=== PATIENT | male | born 1950 | race Caucasian/White ===

== ENCOUNTER 2017-02-10 11:32 | Outpatient (CLI) | payer MEDICARE, BC ==
[2017-02-10] MEDS ORDERED: Iopamidol 300 61% 30 ML VIAL ONE (12:55)
[2017-02-10] MEDS ORDERED: Lidocaine 1% PF 5 ML VIAL ONE (12:55)
[2017-02-10] MEDS ORDERED: Gadobenate Dimeglumine 529 MG/1 ML (20ML VIAL) ONE (12:55)
[2017-02-10] MEDS ORDERED: EPINEPHrine 1 MG/ML AMP ONE (12:55)
--- NOTE | 2017-02-10 15:59 | RAD ---
RIGHT HIP ARTHROGRAM 02/10/17 INDICATION: Right hip pain. TECHNIQUE: Informed consent was obtained. Intelligence Chief images were obtained in the right hip. Site overlying the anterior aspect of the right hip was marked. Site was prepped and draped in the u sual sterile fashion. Buffered 1% lidocaine was administered overlying the subcutaneous tissue. Unde r fluoroscopic guidance, a 22 gauge spinal needle was guided down into the right hip joint. A total of 8 mL of dilute gadolinium solution was injected into the right hip joint. The solution did contai n Isovue contrast which demonstrated some opacification within the right hip joint. The needle was r emoved. The site was then cleansed and bandaged. The patient tolerated the injection without difficu lty. The total fluoroscopic time was 0.5 minutes. Total exposure was 4025.5 uGy*m2. FINDINGS: There is moderate degenerative arthrosis involving the right hip. No acute fracture or subluxation i s evident. Enthesopathic changes seen off the anterior pelvis. Mild enthesopathic change seen off th e right ischial tuberosity. Mild degenerative change seen involving the right SI joint. IMPRESSION: 1. Successful right hip arthrogram. 2. Moderate right hip osteoarthrosis. POS: [facility]
--- NOTE | 2017-02-10 19:25 | MRI ---
MR ARTHROGRAM OF THE RIGHT HIP: 02/10/17 INDICATION: Right hip pain, possible AVN. COMPARISON: None. TECHNIQUE: Multiplanar and multisequence MR images were obtained of the right hip following intra-articular adm inistration of dilute gadolinium solution. Please see separately dictated right hip arthrogram for d etails concerning the right hip injection. FINDINGS: There is slight under coverage of the acetabular roof with the femoral head with hypertrophy of the right hip acetabular labrum, particularly the superior and posterior superior aspect of the acetabul ar labrum. There is some degenerative fraying involving the hypertrophied acetabular labrum which is likely degenerative in nature. There is moderate osteoarthritic change involving the right hip join t. The ligamentum teres is intact. There is mild synovial hypertrophy seen within the joint. No ilio psoas or trochanteric bursitis is evident. The rectus femoris and hamstring origins are normal appea ring. No enlarged lymph nodes are evident. The bony marrow signal intensity appears within normal li mits. There is mild degenerative change involving the lower lumbar spine. IMPRESSION: 1. 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 There is moderate degen erative arthrosis of the right hip with some degenerative fraying of the superior and posterior supe rior acetabular labrum. 2. Mild synovial hypertrophy of the right hip joint can be seen with chronic inflammation. POS: [facility]
== END 2017-02-10 11:33 | disposition home or self-care (01) ==
LOC: RAD 11:32
PROVIDERS: ATTEND Orthopaedic Surgery
DX: M25.551 Pain in right hip (principal); M16.11 Unilateral primary osteoarthritis, right hip; M67.251 Synovial hypertrophy, not elsewhere classified, right thigh; Q65.89 Other specified congenital deformities of hip
CPT/HCPCS: 27093; 72196; A9579; J0171; J2001; J7050

== ENCOUNTER 2017-05-05 12:08 | Outpatient (CLI) | payer MEDICARE, BC ==
--- NOTE | 2017-05-05 13:53 | RAD ---
TWO VIEW CHEST: Comparison: 02-22-10 Indication: Pre-operative evaluation. FINDINGS: Lungs are clear. No effusion or pneumothorax. Cardiac and mediastinal silhouette is within normal nieves its in size. Osseous structures are non-acute in appearance. IMPRESSION: No focal consolidation. POS: [facility]
[2017-05-05 14:26] LABS: Bilirubin Negative (Negative); Blood, Urine Negative (Negative); Clarity CLEAR (Clear); Glucose, Urine (Dipstick) Negative (Negative); Leukocyte Small (Negative); Nitrite Negative (Negative); Protein, Urine (Dipstick) Negative (Neg-Trace); Specific Gravity, Urine 1.019 (1.002-1.036); Urobilinogen 0.2 mg/dL (0.2-1.0); pH, Urine 5.5 (5.0-9.0)
[2017-05-05 14:29] LABS: #Basophils 0.1 thou/uL (0.0-0.2); #Eosinphils 0.1 thou/uL (0.0-0.7); #Lymphocytes 2.5 thou/uL (1.20-3.40); #Monocytes 0.6 thou/uL (0.11-0.59); #Neutrophils 4.9 thou/uL (1.40-6.50); %Basophils 0.7 % (0.0-1.0); %Eosinophils 1.1 % (0.0-10.0); %Lymphocytes 30.9 % (21.0-51.0); %Monocytes 7.3 % (0.0-10.0); Hemoglobin 15.5 g/dL (14.0-18.0); Mean Corpuscular Hemoglobin 32.4 pg (27.0-31.0); Mean Corpuscular Volume 95.3 fl (80.0-94.0); Mean Platelet Volume 7.8 fL (7.4-10.4); Platelet Count 233 thou/uL (130-400); RBC Distribution Width 12.2 % (11.5-14.5); Red Blood Cell (RBC) Count 4.79 mill/uL (4.70-6.10); White Blood Cell (WBC) Count 8.2 thou/uL (4.8-10.8)
[2017-05-05 14:31] LABS: Bacteria/HPF None Seen HPF (None Seen); Hyaline Casts/LPF 0-3 HYALINE CAST LPF (0-3 Hyaline); Squamous Epithelial None Seen HPF (0-3); WBC/HPF 0-3 HPF (0-3)
[2017-05-05 14:33] LABS: INR-International Normal Ratio 1.1; PTT 36.5 SEC (22.9-36.1); Prothrombin Time 14.2 SEC (12.0-14.7)
[2017-05-05 14:42] LABS: Anion Gap 18 mmol/L (10-20); BUN (Urea Nitrogen) 14 mg/dL (8.4-25.7); Calc. Creatinine Clearance 0 mL/min (70-130); Calcium 9.8 mg/dL (7.8-10.44); Carbon Dioxide 22 mmol/L (23-31); Chloride 101 mmol/L (98-107); Estimated GFR-MDRD 76; Glucose 81 mg/dL (80-115); Potassium 5.2 mmol/L (3.5-5.1); Sodium 136 mmol/L (136-145)
--- NOTE | 2017-05-07 00:50 | EKG ---
Test Reason : Blood Pressure : / mmHG Vent. Rate : 049 BPM Atrial Rate : 049 BPM P-R Int : 168 ms QRS Dur : 084 ms QT Int : 430 ms P-R-T Axes : 028 045 020 degrees QTc Int : 388 ms Marked sinus bradycardia Abnormal ECG No previous ECGs available Confirmed by ROSALINDA ANNE, DR. Lehman ([id number]) on 05/07/2017 12:49:50 AM Referred By: EMELYN Confirmed By:DR. Fallon TELLEZ MD
== END 2017-05-05 12:09 | disposition home or self-care (01) ==
LOC: LABBT 12:08
PROVIDERS: ATTEND Orthopaedic Surgery
DX: Z01.818 Encounter for other preprocedural examination (principal)
CPT/HCPCS: 71046; 80048; 81001; 85025; 85610; 85730; 87081; 93005; 93010

== ENCOUNTER 2017-05-05 15:15 | Inpatient (IN) | payer MEDICARE, BC ==
[2017-05-05 12:25] VITALS: BMI 30.2
[2017-05-19] MEDS ORDERED: Vancomycin HCl 1.5 GM in Sodium Chloride 0.9% 250 ML 300 ML IVPB SCH (07:45)
[2017-05-19] MEDS ORDERED: SODIUM CHLORIDE 0.9% IVPB SCH (07:45)
[2017-05-19] MEDS ORDERED: TRANEXAMIC ACID IVPB SCH (07:45)
[2017-05-19] MEDS ORDERED: CEFAZOLIN/Water 2 GM/20 ML SYRINGE SLOW IVP SCH (07:45)
[2017-05-19] MEDS ORDERED: Midazolam HCl 2 mg/2 ml Vial ONE (07:47)
[2017-05-19] MEDS ORDERED: Fentanyl 100 MCG/2 ML VIAL ONE ×2 (07:47→11:21)
[2017-05-19] MEDS ORDERED: CEFAZOLIN/Water 2 GM/20 ML SYRINGE ONE (07:49)
[2017-05-19] MEDS ORDERED: Tranexamic Acid 1,000 MG/100 ML BAG ONE ×2 (07:50→10:59)
[2017-05-19] MEDS ORDERED: Acetaminophen 325 MG TAB PO PRN (08:43)
[2017-05-19] MEDS ORDERED: diphenhydrAMINE 25 MG CAP PO PRN ×2 (08:43→09:00)
[2017-05-19] MEDS ORDERED: HYDROcodone/Acetaminophen 10/325 mg Tablet PO PRN ×2 (08:43)
[2017-05-19] MEDS ORDERED: Fentanyl 100 MCG/2 ML VIAL SLOW IVP PRN ×2 (08:43)
[2017-05-19] MEDS ORDERED: Promethazine HCl 25 MG/ML VIAL IM PRN ×3 (08:43→09:55)
[2017-05-19] MEDS ORDERED: Zolpidem Tartrate 5 MG TAB PO PRN ×2 (08:43→09:00)
[2017-05-19] MEDS ORDERED: traMADol HCl 50 MG TAB PO PRN ×3 (08:43→09:00)
[2017-05-19] MEDS ORDERED: Ondansetron HCl/PF 4 MG/2 ML Vial IVP PRN ×3 (08:43→09:55)
[2017-05-19] MEDS ORDERED: Tranexamic Acid 1,000 MG in Sodium Chloride 0.9% 100 ML IVPB SCH (08:45)
[2017-05-19] MEDS ORDERED: diphenhydrAMINE 50 MG/ML VIAL IVP PRN (09:00)
[2017-05-19] MEDS ORDERED: Eucerin (Mineral Oil/Petrolatum,White) 30 gm Jar TOP PRN (09:00)
[2017-05-19] MEDS ORDERED: Naloxone HCl 0.4 mg/ml Vial IV PRN (09:00)
[2017-05-19] MEDS ORDERED: Naloxone HCl 0.4 mg/ml Vial IVP PRN (09:00)
[2017-05-19] MEDS ORDERED: diphenhydrAMINE 50 MG/ML VIAL IM PRN (09:00)
[2017-05-19] MEDS ORDERED: HYDROcodone/Acetaminophen 5/325 mg Tablet PO PRN (09:00)
[2017-05-19] MEDS ORDERED: Bupivacaine 0.25% 10 ML VIAL EPIDURAL PRN (09:00)
[2017-05-19] MEDS ORDERED: Promethazine HCl 25 MG SUPP PR PRN (09:00)
[2017-05-19] MEDS ORDERED: Fentanyl/Bupivacaine 250 ML in Premix Bag 1 BAG EPIDURAL SCH (09:00)
[2017-05-19] MEDS ORDERED: Ropivacaine 0.2% HCl/PF 20 ML ONE (09:16)
[2017-05-19] MEDS ORDERED: Promethazine HCl 25 MG/ML VIAL SLOW IVP PRN (09:55)
[2017-05-19] MEDS ORDERED: Fentanyl/Bupivacaine 250 ML EPIDURAL ONE (11:03)
--- NOTE | 2017-05-19 11:19 | RAD ---
RIGHT HIP TWO VIEW: History: Post op. Comparison: 2017 FINDINGS: Satisfactory appearance of right hip arthroplasty. No hardware complication. IMPRESSION: Satisfactory appearance right hip arthroplasty. POS: [facility]
--- NOTE | 2017-05-19 11:29 | OP ---
PREOPERATIVE DIAGNOSIS: Degenerative joint disease, right hip. POSTOPERATIVE DIAGNOSIS: Degenerative joint disease, right hip. SURGEON: Rico Yeh M.D. [employer] OPERATOR: William. SPECIMEN: None. DRAINS: None. COMPLICATIONS: None. BLOOD LOSS: 200 mL. IMPLANTS USED: Cornelius Accolade 4.5 stem with a -2.5 x 36 ceramic head Tritanium Cornelius cup size 56 with a 36 mm liner 10 degree luong. PROCEDURE IN DETAIL: After informed consent was obtained in the preoperative holding area, the patie nt was taken to the operative suite where general anesthesia was induced. The patient was then posit ioned in the lateral decubitus position. The hip was then prepped and draped in usual sterile fashio n. The patient received preoperative antibiotics. Prior to incision, time-out was called and all me mbers of the surgical team agreed upon site, surgeon, and patient. After this, a longitudinal incisi on was made directly over the trochanter, noted by palpation extending 2 fingerbreadths above and bel ow the trochanter. The deeper subcutaneous layer was undermined with Bovie electrocautery. The ilio tibial band was encountered and incised sharply and the plane below this was developed bluntly. [facility] to hold this opened. The lateral aspect of the trochanter and the abduct or muscles were encountered and then reflected anteriorly off the trochanter using Bovie electrocaute ry. Once this was completed, the anterior capsule was then encountered and identified and copious ca psulotomy was carried out, exposing the femoral neck and head. Dislocation maneuver was then performe d and an in situ provisional neck cut was then made using the oscillating saw. Attention was then tu rned to acetabular preparation and sequential reaming was carried out up to the appropriate diameter and a trial was then malleted into place with good firm resistance and no pullout. The permanent tish tabular shell was then malleted squarely into place, as was the appropriate liner. Once completed, t he wound was copiously irrigated and attention was then turned to femoral preparation. Flexion and ex ternal rotation was performed of the exposed thigh and femoral elevators were then placed at the prox imal aspect of the wound. Canal finder was used to establish the length of the canal and sequential reaming was carried out, followed by broaching. Once the appropriate stability was established with the trial broaches with both flexion, extension and rotational stability, we did trial with neutral a nd 2 mm offset incremental necks. Once the appropriate size was decided upon, with good stability no evelyne with flexion, extension, internal and external rotation and shuck being negative, we removed the femoral trial broach and malletted into place the permanent prosthesis with good firm fit, which was also stable to rotation. Again, the hip felt very stable to flexion, extension, internal and externa l rotation. Leg lengths appeared near anatomic clinically and we were quite happy with prosthesis pl acement. Copious irrigation was then carried out through the entirety of the wound. Primary closure of the abductors was accomplished with interrupted #2 Vicryl [id number] stitches and the IT ban d was then closed with interrupted #2 Vicryl, oversewn with a #2 running barbed Quill stitch. Subcut aneous fascia was closed with running barbed Quill stitch and a subcuticular Monocryl barbed Quill st itch was used for skin closure and augmented with skin cement. A sterile dressing was applied. The p rocedure was terminated without any complication. All counts were correct. The patient was awakened in the operative suite and taken to the recovery room in stable condition.
[2017-05-19] MEDS ORDERED: Ketorolac Tromethamine 30 MG/ML VIAL IVP SCH (12:00)
[2017-05-19] MEDS ORDERED: SILDENAFIL CITRATE 50 MG PO PRN (12:00)
[2017-05-19] MEDS: Sodium Chloride 0.9% 1,000 ML IV SCH ×3 (13:09→20:24)
[2017-05-19] MEDS: Aspirin 325 MG TAB PO SCH ×2 (13:10→20:20)
[2017-05-19] MEDS: Ascorbic Acid 500 mg Chewable Tablet PO SCH (13:10)
[2017-05-19] MEDS: Multivitamin W/ Minerals 1 TAB PO SCH (13:11)
[2017-05-19] MEDS: Ferrous Gluconate 324 MG TAB PO SCH ×2 (13:11→20:20)
[2017-05-19] MEDS: Senokot S 8.6-50 MG TAB PO SCH ×2 (13:12→20:21)
[2017-05-19] MEDS ORDERED: Ondansetron HCl/PF 4 MG/2 ML Vial ONE (15:30)
[2017-05-19] MEDS ORDERED: ePHEDrine/0.9% NaCl/PF SYRINGE 50 mg/10 ml ONE (15:30)
[2017-05-19] MEDS ORDERED: Glycopyrrolate 0.2 MG/ML 5 ML SYRINGE ONE ×2 (15:30)
[2017-05-19] MEDS ORDERED: Propofol 200 MG/20 ML VIAL ONE (15:30)
[2017-05-19] MEDS ORDERED: PHENYLEPHRINE-NS 100 MCG/ML 10 ML SYRINGE ONE (15:30)
[2017-05-19] MEDS ORDERED: Ketorolac Tromethamine 30 MG/ML VIAL ONE (15:30)
--- NOTE | 2017-05-19 15:52 | CON ---
DATE OF CONSULTATION: 05/19/2017 CONSULTING PHYSICIAN: Dr. Rico Yeh. PRIMARY CARE PHYSICIAN: Dr. Cassidy. REASON FOR CONSULTATION: Medical management post right hip replacement. HISTORY OF PRESENT ILLNESS: Mr. York is a pleasant 67-year-old white gentleman with history of hyp ertension, erectile dysfunction, and degenerative joint disease, who is postop day 0 from a right tot al hip arthroplasty day electively. He had no known intraoperative complications. Currently, has an epidural catheter in place for pain management and we are consulted for medical management of his me dical issues. Denies any chest pain or shortness of breath, no nausea or vomiting, no fevers or chills. There is n o chest pain, no diarrhea or constipation, he is feeling pretty good now, and his epidural is working . PAST MEDICAL HISTORY: 1. Hypertension, essential. 2. Erectile dysfunction. 3. DJD. PAST SURGICAL HISTORY: 1. Left hand tendon repair. 2. Colonoscopy x2, last was 8-12 months ago[address] He sees Dr. Segundo, his nurse practitioner, [place]. HOME MEDICATIONS: 1. Glucosamine/chondroitin 1 tablet p.o. daily. 2. Vitamin C 500 mg daily. 3. Viagra 50 mg 1/3 tablet used as needed about 4 times per month. 4. Multivitamin daily. 5. Benicar 40 mg p.o. daily. ALLERGIES: NKDA. FAMILY HISTORY: Significant for dad with hypertension and around age 89. Mom and maternal gran dmother with colon cancer. His mom still alive at age 89. SOCIAL HISTORY: Significant for 1 cigar a week. No alcohol, no IV drug use. REVIEW OF SYSTEMS: A 10-point review of systems was performed, negative for all other systems except as per HPI. PHYSICAL EXAMINATION: VITAL SIGNS: Temperature 97.4, pulse 66, blood pressure is 105/69, respiratory rate 16, sat 96% on r oom air. GENERAL: He is awake, alert, oriented x3, well-developed, well-nourished, white male who appears in no acute distress. HEENT: Normocephalic, atraumatic. Pupils equal and react to light bilaterally. Mucous membranes mo ist. No visible lesions. No thrush. NECK: Supple without lymphadenopathy, JVD, or thyromegaly. LUNGS: Clear. He has no wheezes, no rales, no rhonchi. CARDIOVASCULAR: Normal S1 and S2. No S3 or S4. No audible murmurs. ABDOMEN: Soft. He is a slightly obese. He is nontender, nondistended. He has got good bowel sound s present in all 4 quadrants. There is no rebound, rigidity or guarding. EXTREMITIES: No cyanosis or clubbing. Trace pedal edema bilaterally. Right hip postop dressing is clean, dry, and intact without bleeding or strike through. SKIN: Otherwise, warm, moist, and well perfused. He had no other rashes or lesions. NEUROLOGIC: Cranial nerves II-XII are grossly intact. He has no focal neurologic deficits. He has 5/5 strength in all 4 extremities, normal sensation. He has normal speech pattern. MUSCULOSKELETAL: Right hip not examined. The remainder of his large joints appear to be normal to i nspection. No inflammation or palpable effusions. LABORATORY DATA: Labs taken on 05/05/2017, sodium 136, potassium 5.2, chloride 101, bicarb 22, BUN 1 4, creatinine 0.98, glucose of 81, and calcium 9.2. INR is 1.1. CBC showed a white count of 8.2, he moglobin 15.5, hematocrit of 45.7, platelet count is 233,000. Urinalysis is negative. ASSESSMENT AND PLAN: 1. Essential hypertension: Continue Benicar per outpatient dosing. 2. Erectile dysfunction: Viagra as needed. Likely, he will need here. 3. Degenerative joint disease status post right total hip arthroplasty per Dr. Yeh. Postoperativ e care per him. Anticipate discharge tomorrow.
[2017-05-19] MEDS: HYDROcodone/Acetaminophen 5/325 mg Tablet PO PRN (16:40)
[2017-05-19] MEDS: CEFAZOLIN/Water 2 GM/20 ML SYRINGE SLOW IVP SCH (16:41)
[2017-05-19] MEDS: Ketorolac Tromethamine 30 MG/ML VIAL IVP SCH (18:28)
[2017-05-20] MEDS: CEFAZOLIN/Water 2 GM/20 ML SYRINGE SLOW IVP SCH (00:27)
[2017-05-20] MEDS: HYDROcodone/Acetaminophen 5/325 mg Tablet PO PRN ×2 (00:55→08:39)
[2017-05-20] MEDS: Ketorolac Tromethamine 30 MG/ML VIAL IVP SCH ×3 (04:04→19:31)
[2017-05-20 06:23] LABS: Hemoglobin 13.1 g/dL (14.0-18.0); Mean Corpuscular HGB CONC 33.7 g/dL (32.0-36.0); Mean Corpuscular Volume 94.8 fl (80.0-94.0); Mean Platelet Volume 7.1 fL (7.4-10.4); Platelet Count 171 thou/uL (130-400); White Blood Cell (WBC) Count 6.4 thou/uL (4.8-10.8)
[2017-05-20] MEDS: Multivitamin W/ Minerals 1 TAB PO SCH (08:38)
[2017-05-20] MEDS: Ascorbic Acid 500 mg Chewable Tablet PO SCH (08:38)
[2017-05-20] MEDS: Senokot S 8.6-50 MG TAB PO SCH ×2 (08:38→19:51)
[2017-05-20] MEDS: Ferrous Gluconate 324 MG TAB PO SCH ×2 (08:38→19:50)
[2017-05-20] MEDS: Aspirin 325 MG TAB PO SCH ×2 (08:39→19:51)
[2017-05-20] MEDS ORDERED: Multivit, Therapeutic 1 TAB PO SCH (09:00)
[2017-05-20] MEDS ORDERED: Glucosamine/Msm/Chondroitin A [Glucosamine Chondroitin Msm] PO SCH (09:00)
[2017-05-20] MEDS ORDERED: HYDROcodone/Acetaminophen 10/325 mg Tablet PO PRN ×2 (10:52)
--- NOTE | 2017-05-20 14:30 | PDOC.PN ---
- Subjective Encounter Start Date: 05/20/17 Encounter Start Time: 08:30 Pt did well overnight, O2 sats borderline on RA 89-91%. Pt up to chair, Epidural turned off just now. No F/C, no N/V/D/C, no CP or sOB. 10 point ROS performed and neg for all systems except as per HPI - Objective MAR Reviewed: Yes Vital Signs & Weight: Vital Signs (12 hours) Temp Pulse Resp BP Pulse Ox 05/20/17 13:28 97.4 F L 73 16 128/77 97 05/20/17 08:00 97.4 F L 73 16 117/77 90 L 05/20/17 04:54 97.4 F L 85 16 127/81 89 L Weight Admit Weight 205 lb Weight 205 lb I&O: 05/19/17 05/20/17 05/21/17 06:59 06:59 06:59 Intake Total 1479 Output Total 1000 Balance 479 Result Diagrams: 05/20/17 05:49 Phys Exam - Physical Examination Constitutional: NAD HEENT: PERRLA, moist MMs, sclera anicteric, oral pharynx no lesions Neck: no nodes, no JVD, supple, full ROM Respiratory: no wheezing, no rales, no rhonchi, clear to auscultation bilateral Cardiovascular: RRR, no significant murmur, no rub Gastrointestinal: soft, non-tender, no distention, positive bowel sounds Musculoskeletal: pulses present, edema present Neurological: non-focal, normal sensation, moves all 4 limbs Lymphatic: no nodes Psychiatric: normal affect, A&O x 3 Skin: no rash, normal turgor, cap refill <2 seconds Dx/Plan (1) HTN (hypertension) Code(s): I10 - ESSENTIAL (PRIMARY) HYPERTENSION Status: Chronic Qualifiers: Hypertension type: essential hypertension Qualified Code(s): I10 - Essential (primary) hypertension (2) Erectile dysfunction Code(s): N52.9 - MALE ERECTILE DYSFUNCTION, UNSPECIFIED Status: Chronic Qualifiers: Erectile dysfunction type: vasculogenic Vasculogenic erectile dysfunction type: unspecified Qualified Code(s): N52.9 - Male erectile dysfunction, unspecified (3) Sleep apnea, obstructive Code(s): G47.33 - OBSTRUCTIVE SLEEP APNEA (ADULT) (PEDIATRIC) Status: Chronic Comment: untreated (4) DJD (degenerative joint disease) Code(s): M19.90 - UNSPECIFIED OSTEOARTHRITIS, UNSPECIFIED SITE Status: Chronic Qualifiers: Osteoarthritis location: hip Osteoarthritis type: unspecified Laterality : right Qualified Code(s): M16.11 - Unilateral primary osteoarthritis, right hip (5) Status post right hip replacement Code(s): Z96.641 - PRESENCE OF RIGHT ARTIFICIAL HIP JOINT Status: Acute - Plan cont current plan of care, PT/OT, respiratory therapy, out of bed/ambulate * . continue home meds, continue IS
[2017-05-20] MEDS: Sodium Chloride 0.9% 1,000 ML IV SCH ×2 (15:20→23:45)
[2017-05-20] MEDS ORDERED: Tamsulosin HCl 0.4 MG CAP PO SCH (18:45)
[2017-05-21] MEDS: Ketorolac Tromethamine 30 MG/ML VIAL IVP SCH ×2 (03:23→04:19)
[2017-05-21 06:08] LABS: Hemoglobin 12.2 g/dL (14.0-18.0); Mean Corpuscular HGB CONC 34.2 g/dL (32.0-36.0); Mean Corpuscular Hemoglobin 32.2 pg (27.0-31.0); Mean Corpuscular Volume 94.1 fl (80.0-94.0); Mean Platelet Volume 7.2 fL (7.4-10.4); Platelet Count 173 thou/uL (130-400); Red Blood Cell (RBC) Count 3.81 mill/uL (4.70-6.10); White Blood Cell (WBC) Count 6.2 thou/uL (4.8-10.8)
[2017-05-21] MEDS: Ascorbic Acid 500 mg Chewable Tablet PO SCH (08:24)
[2017-05-21] MEDS: Multivitamin W/ Minerals 1 TAB PO SCH (08:25)
[2017-05-21] MEDS: Aspirin 325 MG TAB PO SCH (08:25)
[2017-05-21] MEDS: Senokot S 8.6-50 MG TAB PO SCH (08:25)
[2017-05-21] MEDS: Ferrous Gluconate 324 MG TAB PO SCH (08:25)
[2017-05-21 09:07] VITALS: BP 129/87; TEMP 97.8
--- NOTE | 2017-05-21 12:29 | PDOC.PN ---
- Subjective Encounter Start Date: 05/21/17 Encounter Start Time: 08:05 Pt doing well, O2 overnight down to 91, likely his TASNEEM, 95-97 during the day. going home per Ortho, BP good, no Fever snor cills, no N/V/d/C, no CP or sOB. 10 point ROs pefromed and neg fro all systems except as per HPi - Objective MAR Reviewed: Yes Vital Signs & Weight: Vital Signs (12 hours) Temp Pulse Resp BP Pulse Ox 05/21/17 08:05 97.8 F 80 20 129/87 93 L 05/21/17 08:00 97.8 F 80 20 93 L Weight Admit Weight 205 lb Weight 205 lb I&O: 05/20/17 05/21/17 05/22/17 06:59 06:59 06:59 Intake Total 1479 Output Total 1000 1275 Balance 479 -1275 Result Diagrams: 05/21/17 04:55 Phys Exam - Physical Examination Constitutional: NAD HEENT: PERRLA, moist MMs, sclera anicteric, oral pharynx no lesions Neck: no nodes, no JVD, supple, full ROM Respiratory: no wheezing, no rales, no rhonchi, clear to auscultation bilateral Cardiovascular: RRR, no significant murmur, no rub Gastrointestinal: soft, non-tender, no distention, positive bowel sounds Musculoskeletal: no edema, pulses present Neurological: non-focal, normal sensation, moves all 4 limbs Lymphatic: no nodes Psychiatric: normal affect, A&O x 3 Skin: no rash, normal turgor, cap refill <2 seconds Dx/Plan (1) HTN (hypertension) Code(s): I10 - ESSENTIAL (PRIMARY) HYPERTENSION Status: Acute Qualifiers: Hypertension type: essential hypertension Qualified Code(s): I10 - Essential (primary) hypertension (2) Erectile dysfunction Code(s): N52.9 - MALE ERECTILE DYSFUNCTION, UNSPECIFIED Status: Chronic Qualifiers: Erectile dysfunction type: vasculogenic Vasculogenic erectile dysfunction type: unspecified Qualified Code(s): N52.9 - Male erectile dysfunction, unspecified (3) Sleep apnea, obstructive Code(s): G47.33 - OBSTRUCTIVE SLEEP APNEA (ADULT) (PEDIATRIC) Status: Chronic Comment: untreated (4) DJD (degenerative joint disease) Code(s): M19.90 - UNSPECIFIED OSTEOARTHRITIS, UNSPECIFIED SITE Status: Chronic Qualifiers: Osteoarthritis location: hip Osteoarthritis type: unspecified Laterality : right Qualified Code(s): M16.11 - Unilateral primary osteoarthritis, right hip (5) Status post right hip replacement Code(s): Z96.641 - PRESENCE OF RIGHT ARTIFICIAL HIP JOINT Status: Acute - Plan * .
--- NOTE | 2017-05-22 14:58 | DIS ---
DATE OF ADMISSION: 05/19/2017 DATE OF DISCHARGE: 05/21/2017 DISCHARGE DISPOSITION: To home. ADMISSION DIAGNOSIS: End-stage bicompartmental osteoarthritis, right hip. DISCHARGE DIAGNOSES: End-stage bicompartmental osteoarthritis, right hip. OPERATIVE PROCEDURE: Right total hip arthroplasty. CONSULTANTS: [facility] for acute postop pain management and [facility] fo r medical management. BRIEF CLINICAL HISTORY: The patient was admitted to [facility] and underwent the above elective procedure on the date of admission without intra, sarah, or postoperative complicat ion. The hospital course was unremarkable. At the time of discharge, the patient is afebrile, ambul atory without assistance utilizing a rolling walker in a full weightbearing fashion, tolerating a reg ular diet, and voiding without difficulty. The patient's incision is clean and closed without any er ythema. DISCHARGE MEDICATIONS: Please see medication reconciliation form. We will be happy to see the patient on an as needed basis between now and his next scheduled appointm ent. CONDITION ON DISCHARGE: Stable. PROGNOSIS: Good.
== END 2017-05-21 09:36 | disposition home or self-care (01) | DRG 470 ==
LOC: SURG A 05-19 06:16 → SJJU 05-19 11:13
PROVIDERS: ADMIT Orthopaedic Surgery; ATTEND Orthopaedic Surgery
PROC: 0SR904A Replacement of Right Hip Joint with Ceramic on Polyethylene Synthetic Substitute, Uncemented, Open Approach (ICD-10-PCS; principal; 2017-05-19)
PROC: 3E0T3BZ Introduction of Anesthetic Agent into Peripheral Nerves and Plexi, Percutaneous Approach (ICD-10-PCS; 2017-05-19)
DX: M16.11 Unilateral primary osteoarthritis, right hip (principal); G47.33 Obstructive sleep apnea (adult) (pediatric); I10 Essential (primary) hypertension; N52.9 Male erectile dysfunction, unspecified
CPT/HCPCS: 36415; 85027; G8978-GP-CL; G8979-GP-CJ; G8987-GO-CJ; G8988-GO-CI; J1885; J2250; J2405; J2704; J2795; J3010; J3370; J7050

== ENCOUNTER 2017-05-12 11:08 | Outpatient (CLI) | payer MEDICARE, BC | END 2017-05-12 11:09 | disposition home or self-care (01) | LOC: LABBT 11:08 | PROVIDERS: ATTEND Orthopaedic Surgery | DX: Z01.812 Encounter for preprocedural laboratory examination (principal); M16.11 Unilateral primary osteoarthritis, right hip | CPT/HCPCS: 86850; 86900; 86901 ==